=== PATIENT | male | born 1945 ===

== ENCOUNTER 2025-06-11 08:49 | Outpatient (AMB) | payer OTHER, SELFPAY ==
--- NOTE | 2025-06-11 08:50 | MHC.OFFVIS ---
Intake Visit Reasons: 6m Allergies No Known Allergies Allergy (Verified 06/11/25 08:55) Medication List - Last Reconciled 06/11/25 by Linda Villanueva CNP allopurinol 100 mg PO BID amlodipine 10 mg PO DAILY clonidine 1 patch topical QWEEK dapagliflozin propanediol (Farxiga) 10 mg PO DAILY gabapentin 100 mg PO BEDTIME 90 days levothyroxine 25 mcg PO DAILY losartan-hydrochlorothiazide 100-25 mg 1 tab PO DAILY simvastatin 20 mg PO BEDTIME spironolactone 12.5 mg PO DAILY HPI Comments Details: 79-year-old man with fasting hyperglycemia and mild peripheral neuropathy. He also c/o RLS type of symptoms. He was doing okay. Neuropathy symptoms were about the same. He had some numbness and tingling in feet. No significant pain. No falls. RLS symptoms were okay with gabapentin. Sleep was okay. [facility] Medical History (Updated 06/11/25 @ 08:53 by Linda Villanueva CNP) CKD (chronic kidney disease) JO ANN on CPAP Hyperlipidemia Hypothyroidism Gout Hypertension Review of Systems Const Denies chills, Denies daytime sleepiness, Denies difficulty sleeping, Denies fatigue, Denies fever(s), Denies frequent falls, Denies headache(s), Denies increased appetite, Denies poor appetite, Denies snoring, Denies weakness, Denies weight gain and Denies weight loss Eyes Denies loss of vision ENT Denies vertigo, Denies dizziness and Denies headache(s) Card Denies chest pain at rest, Denies chest pain with activity, Denies syncope, Denies leg edema and Denies palpitations Resp Denies snoring GI Denies constipation, Denies heartburn, Denies diarrhea and Denies nausea Denies urinary frequency, Denies urinary incontinence and Denies urinary urgency Musc Denies abnormal gait, Reports numbness and Reports tingling Skin/Breast Denies dry skin and Denies rash Neuro Denies abnormal gait, Denies vertigo, Denies dizziness, Denies syncope, Denies frequent falls, Denies headache(s), Denies lack of coordination, Denies loss of vision, Denies memory loss, Reports numbness, Reports restless legs, Denies seizure-like activity, Reports tingling, Denies paresthesias, Denies tremor(s) and Denies weakness Psych Denies anxiety, Denies depression, Denies auditory hallucinations, Denies memory loss, Denies visual hallucinations and Denies suicidal ideation Endo Denies fatigue and Denies palpitations Physical Exam Const Other: General Appearance:? normal, in no acute distress. Skin:? no rashes, no significant birthmarks. Heart:? S1, S2 normal, no murmurs. Lungs:? clear anteriorly and posteriorly. Extremities:? no edema. Psych:? alert, oriented, cognitive function intact, cooperative with exam. Neuro Other: Mental Status:?Normal attention, orientation, memory and affect.? Cranial Nerves:?Pupils are equal, round and reactive to light. External occular muscles are intact. Visual roberts are full. Face is symmetrical. Facial sensations are normal. Tongue is midline. Palate elevates symmetrically. Shoulder shrugging is normal. Hearing to bedside conversation is normal.? Sensory Exam:?Joint position absent. Coordination:?No ataxia,?no titubation.? Gait Exam: Within normal limits. Extrapyramidal System:?No tremor, rigidity with normal facial expressions.? Pronator Drift:?Not present.? Involuntary Movements:?No tremors seen.? Speech:?Normal.? 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 Stay physically active, continue to monitor blood sugar. (2) Restless leg syndrome: Code(s): G25.81 - Restless legs syndrome Category: Medical Plan: Continue gabapentin 100mg 1 capsule at bedtime. Coding Level of Care Code Est Pt Level 4 (81236) Diagnoses Peripheral polyneuropathy G62.9 Peripheral neuropathy type: polyneuropathy, unspecified Restless leg syndrome G25.81
--- OUTSIDE RECORDS SUMMARY | 2025-06-11 09:36 | XMS_ITS | Clinical Summary ---
Author Organization [address] Address [address] [place] [phone] Phone Care Team Providers Care Inspector Precision Name Role Phone Shyla Osorio MD Primary Care Provider [phone] Allergies No known active allergies Medications cholecalciferol (VITAMIN D-3) 5,000 Units tablet Take 1 tablet (5,000 Units total) by mouth 1 (one) time each day. Active dapagliflozin propanediol (FARXIGA) 10 mg tablet Take 1 tablet (10 mg total) by mouth 1 (one) time each day. 3 Active meclizine (ANTIVERT) 25 mg tablet Take 1 tablet (25 mg total) by mouth. Take 1 Tablet by mouth 3 times daily as needed (dizziness) 2 Active spironolactone (ALDACTONE) 25 mg tablet Take 1 tablet (25 mg total) by mouth 1 (one) time. Take 1/2 tablet daily Active losartan-hydroCH LOROthiazide (HYZAAR) 100-25 mg per tablet Take 1 tablet by mouth 1 (one) time each day. Active cloNIDine (NRLVZDQN-MUY-4) 0.3 mg/[address] 0.3 mg on the skin 1 (one) time per week. Active gabapentin (NEURONTIN) 100 mg capsule Take 1 Capsule by mouth daily Active levothyroxine (SYNTHROID, LEVOTHROID) 25 mcg tablet TAKE 1 TABLET BY MOUTH EVERY DAY 90 tablet 1 5 Active allopurinoL (ZYLOPRIM) 100 mg tablet Take 1 tablet (100 mg total) by mouth 2 (two) times a day. 180 tablet 5 Active simvastatin (ZOCOR) 20 mg tablet TAKE 1 TABLET BY MOUTH EVERYDAY AT BEDTIME 90 tablet 5 Active amLODIPine (NORVASC) 10 mg tablet TAKE 1 TABLET BY MOUTH EVERY DAY 90 tablet 1 5 Active Active Problems Problem Noted Date Diagnosed Date Stage 3 chronic kidney disease ([facility]24, [facility] V28) 12/14/2021 Obstructive sleep apnea 04/21/2021 Overview (10/19/2023): [facility] Home Sleep Apnea Test: Date 04/08/2021; Wt 212#; BMI 31; [place] (AHI) 25, AI 14; HI 11; Unclassified apneas 0; Obstructive apneas 127; Central apneas 8; Mixed apneas 1; hypopneas 118; average oxygen saturation 93% (lowest 83% without saturations <88% for 5% or more of study) - Obstructive Sleep Apnea - moderate; mostly obstructive apneas; without sleep related hypoventilation by 2020 home sleep apnea test. Vertigo 09/09/2020 Diverticulosis 02/05/2020 Overview (10/19/2023): 01/16/2020: CT scan. Diverticulosis of large inte taqueria without perforation or abscess with bleeding 02/05/2020 Ischemic colitis ([facility] V24) 06/17/2016 Obesity 05/26/2016 Hyperglycemia 07/18/2015 Cervical spine disease 09/12/2014 Anal fistula 04/28/2011 Hearing loss in left ear 06/27/2009 Overview (10/19/2023): L>R, follows with ENT/audiology Gout 08/26/2008 Pure hypercholesterolemia 04/29/2006 Essential hypertension, benign 09/07/2005 Encounters Date Type Department Care Team Description 05/20/2025 9:30 AM EDT Office Visit Orthopedic Surgery [facility] [address] [place] [phone] Hemal Sim DPKalin Pain in toes of both feet (Primary Dx); Arthritis of both feet; Thickened nails 05/14/2025 9:30 AM EDT Office Visit Adult Medicine [facility] [address] [place] [phone] Shyla Osorio MD Pre-diabetes (Primary Dx); Microalbuminuria; Stage 3 chronic kidney disease, unspecified whether stage 3a or 3b CKD ([facility] V24, [facility] V28); Obesity (BMI 30-39.9); Pure hypercholesterolemia; Essential hypertension, benign 03/18/2025 10:00 AM EDT Consult Orthopedic [place] [address] [place] [phone] Hemal Sim DPKalin Pain in toes of both feet (Primary Dx); Arthritis of both feet; Thickened nails from Last 3 Months Immunizations Immunization Administration Dates Next Due COVID-19 (Moderna/Spikevax) 12yo and older 05/18/2023 COVID-19 (Pfizer/Comirnaty) 12yo and older 05/06/2024 Influenza Quadravalent, 0.5m l (Fluzone High-dose) 65yo and older 04/30/2021 Influenza trivalent, 0.5mL ( Fluzone High-dose) 65yo and older 03/17/2025,04/15/2023,04/29/2022,04/25,04/17/2019,05/10/2018,05/03/2017 ,05/25/2016 Influenza trivalent, with pr eservative (Fluzone; Afluria) 6mo and older 07/18/2015,07/09/2014,08/30/2013,07/24,04/28/2011,07/01/2010,05/14/2009 ,06/26/2008 Moderna SARS-CoV-2 COVID-19, mRNA, LNP-S, preservative free 12/15/2021,06/10/2021,10/08/2020,09/10 Pneumococcal conjugate 13 va lent (Prevnar 13, PCV13) 2mo and older 08/21/2015 Pneumococcal polysaccharide 23 valent (Pneumovax 23) 2yo and older 02/21/2012 Respiratory syncytial virus (RSV), unspecified 08/06/2023 Tdap Tetanus diptheria acell ular pertussis (Boostrix; Adacel) 7yo and older 04/26/2020,06/27/2009 Zoster Live 07/24/2012 Zoster recombinant (Shingrix ) 19yo and older 07/11/2022,03/25/2022 Surgical History Surgery Date Site/Laterality Comments COLONOSCOPY 10/11/2005 PROCEDURE: HISTORICAL COLONOSCOPY; COMMENT: normal COLONOSCOPY 10/13/2015 PROCEDURE: HISTORICAL COLONOSCOPY; COMMENT: 6 mm polyps 2: Low risk adenomas 2. Medical History Medical History Date Comments Hyperaldosteronism ([facility] V24) DX:Hyperaldosteronism; COMMENT: s/p lap adrenlectomy 09/19 Proteinuria DX:Proteinuria; COMMENT: followed by Dr. 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 Family History Medical History Relation Name Comments Hypertension Brother 1 Colon polyps Brother 2 age mid 50' Diabetes Father Hypertension Father Stroke Father age 73 Cataracts Mother Heart attack Mother age 86 Blindness Neg Hx Colon cancer Neg Hx Glaucoma Neg Hx Macular degeneration Neg Hx Strabismus Neg Hx Relation Name Status Comments Brother 1 Brother 2 Father Mother Social History Tobacco Use Types Packs/Day Years Used Date Smoking Tobacco: Never Smokeless Tobacco: Never Tobacco Cessation:Counseling Given: Not Answered Alcohol Use Standard Drinks/Week Comments Yes 0 (1 standard drink = 0.6 oz pur e alcohol) Housing Instability Answer Date Recorde d Are you worried that in the next 2 months you may not have stable housing? No 06/27/2024 Food Access & Nutrition Answer Date Rec orded Do you have access to a vari ety of food including fruits and vegetables? Yes 06/27/2024 Access to Healthcare Answer Date Record ed Within the last 3 months, ho w many times did you visit the emergency department for your medical care? 0 06/27/2024 Health Literacy Answer Date Recorded How often do you need to hav e someone help you when you read instructions, pamphlets, or other written material from your doctor or pharmacy? Never 06/27/2024 Caregiver: How often do you need to have someone help you when you read instructions, pamphlets, or other written material from your doctor or pharmacy? Not on file 06/27/2024 Financial Risk Answer Date Recorded How hard is it for you to pa y for the very basics like food, housing, medical care, and air conditioning / heating? Not very hard 06/27/2024 Transportation Answer Date Recorded Has the lack of transportati on kept you from meetings, work, or from getting things needed for daily living? No Has the lack of transportati on kept you from medical appointments or from getting medications? No 06/27/2024 Social Isolation Answer Date Recorded How often do you feel lonely or isolated from th ose around you? Never 06/27/2024 Food Risk Answer Date Recorded Within the past 12 months we worried whether our food would run out before we got money to buy more. Never true 06/27/2024 Within the past 12 months th e food we bought just didn't last and we didn't have money to get more. Never true 06/27/2024 Dependent Care Answer Date Recorded Do you need help finding or paying for care for your loved ones. For example, childcare teacher or elderly care for an older adult? No 06/27/2024 Education Answer Date Recorded Do you think completing more education or training, like finishing a GED, going to college, or learning a trade, would be helpful for you? No 06/27/2024 Employment and Income Answer Date Recor ded During the last four weeks, have you been actively looking for work? No 06/27/2024 Living Situation Answer Date Recorded What is your living situation? Unrecognized valu e 06/27/2024 Sex and Gender Information Value Date Recorded Sex Assigned at Not on file Legal Sex Male 1:21 PM EST Gender Identity Not on file Sexual Orientation Not on file Obstetrics History Last Filed Vital Signs Vital Sign Reading Time Taken Comments Blood Pressure 129/68 05/14/2025 9:19 AM EDT Pulse 67 05/14/2025 9:19 AM EDT Temperature 36.4 C (97.5 F) 05/14/2025 9:19 AM EDT Respiratory Rate 12 05/14/2025 9:19 AM EDT Oxygen Saturation 97% 01/31/2025 8:49 AM EDT Inhaled Oxygen Concentration - - Weight 102 kg (224 lb) 05/14/2025 9:19 AM EDT Height 175.3 cm (5' 9 ) 05/14/2025 9:19 AM EDT Body Mass Index 33.08 05/14/2025 9:19 AM EDT Plan of Treatment Upcoming Encounters Date Type Department Care Team (Late st Contact Info) Description 07/23/2025 9:45 AM EST Office Visit Orthopedic Surgery - [place] 250 [address] [facility] [address] [place] [phone] Hemal Sim DPM [address] [place] [phone] 09/17/2025 9:30 AM EST Office Visit Adult Medicine [facility] [address] [place] [phone] Shyla Osorio MD [address] [place] [address] 01/31/2026 9:30 AM EDT Office Visit Pulmonology - [place] 175 [facility] 200 [place] [phone] Maria M Iverson MD [address] [place] [phone] Health Maintenance Due Date Last Done Comments RSV Immunization Adult Patients (1 - 1-dose 75+ series) 2021 08/06/2023 Falls Risk Assessment 07/24/2022 Medicare Annual Wellness Visit 07/24/2022 Social Influencers of Health Screening 06/27/2025 06/27/2024 Hypertension/CHF/CAD Annual BMP Blood Test 05/27/2026 05/27/2025, 05/07/2025, 02/12/2025, Additional history exists Colorectal Cancer Screening: Colonoscopy 06/06/2026 06/06/2016 DTaP,Tdap,and Td Vaccines (3 - Td or Tdap) 04/26/2030 04/26/2020, 06/27/2009 Cholesterol Screening (Lipid Panel) 05/07/2030 05/07/2025, 10/25/2023, 10/12/2021 Hepatitis C Screening Completed 08/28/2013 Pneumococcal Vaccine: 50+ Years Completed 08/21/2015, 07/30/2015, 02/21/2012 Zoster Vaccines Completed 07/11/2022, 03/15, 07/24/2012 RSV Immunization Patients Under 20 months Aged Out 08/06/2023 No longer eligible based on patient's age to complete this topic COVID-19 Vaccine Completed 02/11/2025, , 05/18/2023, Additional history exists Influenza Vaccine Completed 03/17/2025, , 04/15/2023, Additional history exists Depression Screening Completed 05/11/2025 HIB Vaccines Aged Out No longer eligi ble based on patient's age to complete this topic HPV Vaccines Aged Out No longer eligi ble based on patient's age to complete this topic Hepatitis A Vaccines Aged Out No long er eligible based on patient's age to complete this topic Hepatitis B Vaccines Aged Out No long er eligible based on patient's age to complete this topic IPV Vaccines Aged Out No longer eligi ble based on patient's age to complete this topic MMR Vaccines Aged Out No longer eligi ble based on patient's age to complete this topic Meningococcal ACWY Vaccine Aged Out N o longer eligible based on patient's age to complete this topic Meningococcal B Vaccine Aged Out No l onger eligible based on patient's age to complete this topic Varicella Vaccines Aged Out No longer eligible based on patient's age to complete this topic Procedures Procedure Name Priority Date/Time Associated Diagnosis Comments RENAL FUNCTION PANEL Routine 05/27/2025 7:48 AM EDT Hypopotassemia Essential hypertension, malignant Chronic kidney disease (CKD) stage G3a/A1, moderately decreased glomerular filtration rate (GFR) between 45-59 mL/min/1.73 square meter and albuminuria creatinine ratio les* ([facility] V24, [facility] V28) MAGNESIUM Routine 05/27/2025 7:48 AM EDT Hypopotassemia Essential hypertension, malignant Chronic kidney disease (CKD) stage G3a/A1, moderately decreased glomerular filtration rate (GFR) between 45-59 mL/min/1.73 square meter and albuminuria creatinine ratio les* ([facility]/H[facility] V24, [facility] V28) PROTEIN AND CREATININE WITH RATIO, URINE Routine 05/27/2025 7:48 AM EDT Hypopotassemia Essential hypertension, malignant Chronic kidney disease (CKD) stage G3a/A1, moderately decreased glomerular filtration rate (GFR) between 45-59 mL/min/1.73 square meter and albuminuria creatinine ratio les* ([facility] V24, [facility] V28) CBC WITH AUTO DIFFERENTIAL Routine 05/07/2025 7:57 AM EDT Routine general medical examination at a [facility] CBC AND DIFFERENTIAL Routine 05/07/2025 7:57 AM EDT Routine general medical examination at a [facility] COMPREHENSIVE METABOLIC PANEL Routine 05/07/2025 7:57 AM EDT Essential hypertension, benign Routine general medical examination at a [facility] facility LIPID PANEL WITH REFLEX TO DIRECT LDL Routine 05/07/2025 7:57 AM EDT Routine general medical examination at a [facility] facility HEMOGLOBIN A1C Routine 05/07/2025 7:57 AM EDT Hyperglycemia Routine general medical examination at a [facility] HM COLONOSCOPY Routine 06/06/2016 HEPATITIS C SCREENING Routine 08/28/2013 from Last 3 Months or Most Recently Relevant to Health Maintenance Results * Protein and creatinine with ratio, urine (05/27/2025 7:48 AM EDT) Pathologist [facility] Protein, Urine 34 mg/dL LAB CHEMISTRY METHOD 05/27/2025 11:16 AM EDT [facility] Prot/Creat, Ur 0.17 <=0.20 mg/mg creat LAB CHEMISTRY METHOD 05/27/2025 11:16 AM EDT [facility] Creatinine, Urine 198.0 mg/dL LAB CHEMISTRY METHOD 05/27/2025 11:16 AM EDT [facility] Urine Urine specimen obtained by clean catch procedure / Unknown Non-blood Collection / Unknown 05/27/2025 7:48 AM EDT 05/27/2025 7:48 AM EDT us Sameer Strange MD LAB URINE ORDERABLES Final Resu lt Performing Organization Address City/[facility]/ZIP Co de Phone Number [facility] [address] [place] [address], [place] [phone] * Magnesium (05/27/2025 7:48 AM EDT) Magnesium 2.2 1.9 - 2.6 mg/dL LAB CHEMISTRY METHOD 05/27/2025 10:15 AM EDT [facility] Blood Venous blood specimen / Unknown Venipuncture / Unknown 05/27/2025 7:48 AM EDT 05/27/2025 7:48 AM EDT us Sameer Strange MD LAB BLOOD ORDERABLES Final Resu lt [facility] [address] [place] [address], [place] [phone] * (ABNORMAL) Renal function panel (05/27/2025 7:48 AM EDT) Sodium 139 133 - 145 mmol/L LAB CHEMISTRY METHOD 05/27/2025 10:15 AM EDT [facility] Potassium 4.0 3.5 - 5.5 mmol/L LAB CHEMISTRY METHOD 05/27/2025 10:15 AM EDT [facility] Chloride 107 96 - 110 mmol/L LAB CHEMISTRY METHOD 05/27/2025 10:15 AM [facility] CO2 26 21 - 32 mmol/L LAB CHEMISTRY METHOD 05/27/2025 10:15 AM [facility] Anion Gap 6 3 - 11 LAB CHEMISTRY METHOD 05/27/2025 10:15 AM [facility] Glucose 120(H) 70 - 100 mg/dL LAB CHEMISTRY METHOD 05/27/2025 10:15 AM [facility] BUN 38(H) 5 - 25 mg/dL LAB CHEMISTRY METHOD 05/27/2025 10:15 AM [facility] Creatinine 1.51(H) 0.70 - 1.30 mg/dL LAB CHEMISTRY METHOD 05/27/2025 10:15 AM [facility] eGFR 47(L) >=60 mL/min/1. 73m2 LAB CHEMISTRY METHOD 05/27/2025 10:15 AM [facility] Comment:Calculation based on the Chronic Kidney Disease Epidemiology Collaboration (CKD-EPI) equation refit without adjustment for race. BUN/Creatinine Ratio 25.2 LAB CHEMISTRY METHOD 05/27/2025 10:15 AM [facility] Albumin 3.8 3.2 - 5.0 g/dL LAB CHEMISTRY METHOD 05/27/2025 10:15 AM [facility] Calcium 8.9 8.5 - 10.5 mg/dL LAB CHEMISTRY METHOD 05/27/2025 10:15 AM [facility] Phosphorus 3.5 2.5 - 4.5 mg/dL LAB CHEMISTRY METHOD 05/27/2025 10:15 AM [facility] Blood Venous blood specimen / Unknown Venipuncture / Unknown 05/27/2025 7:48 AM EDT 05/27/2025 7:48 AM EDT Sameer Strange MD LAB BLOOD ORDERABLES Final Resu lt Performing Organization Address City/[facility]/ZIP Co de Phone Number [facility] [address] [place] [address], [place] [phone] * (ABNORMAL) Lipid panel with reflex to direct LDL (05/07/2025 7:57 AM EDT) Cholesterol 111 0 - 200 mg/dL LAB CHEMISTRY METHOD 05/07/2025 10:37 AM EDT [facility] Triglycerides 130 0 - 150 mg/dL LAB CHEMISTRY METHOD 05/07/2025 10:37 AM EDT [facility] HDL 37(L) >=40 mg/dL LAB CHEMISTRY METHOD 05/07/2025 10:37 AM EDT [facility] LDL Calculated 48 0 - 100 mg/dL LAB CHEMISTRY METHOD 05/07/2025 10:37 AM EDT [facility] Comment:Estimated LDL Calcul ated using equation: Total cholesterol - HDL cholesterol - (Triglycerides/5) VLDL Cholesterol Thaddeus 26 mg/dL LAB CHEMISTRY METHOD 05/07/2025 10:37 AM EDT [facility] Non HDL Chol. (LDL+VLDL) 74 <145 mg/dL LAB CHEMISTRY METHOD 05/07/2025 10:37 AM EDT [facility] Chol/HDL Ratio 3.0 0.0 - 4.4 LAB CHEMISTRY METHOD 05/07/2025 10:37 AM EDT [facility] Blood Venous blood specimen / Unknown Venipuncture / Unknown 05/07/2025 7:57 AM EDT 05/07/2025 7:57 AM EDT Shyla Osorio MD LAB BLOOD ORDERABLES Final Resul t Performing Organization Address [facility]/State/ZIP Co de Phone Number [facility] [address] [place] [address], [place] [phone] * (ABNORMAL) CBC auto differential (05/07/2025 7:57 AM EDT) [facility] WBC 6.5 4.8 - 10.8 K/mcL LAB HEMETOLOGY METHOD 05/07/2025 10:16 AM [facility] RBC 4.40(L) 4.50 - 5.50 M/mcL LAB HEMETOLOGY METHOD 05/07/2025 10:16 AM [facility] Hemoglobin 13.4(L) 13.5 - 17.5 g/dL LAB HEMETOLOGY METHOD 05/07/2025 10:16 AM [facility] Hematocrit 39.1(L) 42.0 - 54.0 % LAB HEMETOLOGY METHOD 05/07/2025 10:16 AM [facility] MCV 88.5 79.0 - 98.0 FL LAB HEMETOLOGY METHOD 05/07/2025 10:16 AM [facility] MCH 30.3 27.0 - 32.0 pcg LAB HEMETOLOGY METHOD 05/07/2025 10:16 AM [facility] MCHC 34.3 32.0 - 37.0 g/dL LAB HEMETOLOGY METHOD 05/07/2025 10:16 AM [facility] RDW 15.4(H) 11.0 - 15.0 % LAB HEMETOLOGY METHOD 05/07/2025 10:16 AM [facility] Platelets 180 130 - 400 K/mcL LAB HEMETOLOGY METHOD 05/07/2025 10:16 AM [facility] MPV 11.4(H) 7.0 - 11.0 FL LAB HEMETOLOGY METHOD 05/07/2025 10:16 AM [facility] NRBC 0.0 <1.0 % LAB HEMETOLOGY METHOD 05/07/2025 10:16 AM [facility] NRBC Absolute 0.00 <0.10 K/mcL LAB HEMETOLOGY METHOD 05/07/2025 10:16 AM [facility] Neutrophils Relative 62.4 % LAB HEMETOLOGY METHOD 05/07/2025 10:16 AM [facility] Lymphocytes Relative 24.1 % LAB HEMETOLOGY METHOD 05/07/2025 10:16 AM [facility] Monocytes Relative 9.9 % LAB HEMETOLOGY METHOD 05/07/2025 10:16 AM [facility] Eosinophils Relative 2.5 % LAB HEMETOLOGY METHOD 05/07/2025 10:16 AM [facility] Basophils Relative 0.5 % LAB HEMETOLOGY METHOD 05/07/2025 10:16 AM [facility] Immature Granulocytes Relative 0.6 % LAB HEMETOLOGY METHOD 05/07/2025 10:16 AM [facility] Neutrophils Absolute 4.04 1.50 - 7.00 K/mcL LAB HEMETOLOGY METHOD 05/07/2025 10:16 AM [facility] Lymphocytes Absolute 1.56 1.00 - 5.00 K/mcL LAB HEMETOLOGY METHOD 05/07/2025 10:16 AM [facility] Monocytes Absolute 0.64 0.20 - 1.00 K/mcL LAB HEMETOLOGY METHOD 05/07/2025 10:16 AM [facility] Eosinophils Absolute 0.16 0.00 - 0.50 K/mcL LAB HEMETOLOGY METHOD 05/07/2025 10:16 AM [facility] Basophils Absolute 0.03 0.00 - 0.20 K/mcL LAB HEMETOLOGY METHOD 05/07/2025 10:16 AM [facility] Immature Granulocytes Absolute 0.04(H) 0.00 - 0.03 K/mcL LAB HEMETOLOGY METHOD 05/07/2025 10:16 AM EDT [facility] Blood Venous blood specimen / Unknown Venipuncture / Unknown 05/07/2025 7:57 AM EDT 05/07/2025 7:57 AM EDT us Shyla Osorio MD LAB BLOOD ORDERABLES Final Resul t Performing Organization Address [facility]/ZIP Co de Phone Number [facility] [address] [place] [address], [place] [phone] * Hemoglobin A1c (05/07/2025 7:57 AM EDT) Hemoglobin A1C 6.3 <6.5 % LAB CHEMISTRY METHOD 05/07/2025 11:33 AM EDT [facility] Mean Bld Glu Estim. 134 mg/dL LAB CHEMISTRY METHOD 05/07/2025 11:33 AM EDT [facility] Blood Venous blood specimen / Unknown Venipuncture / Unknown 05/07/2025 7:57 AM EDT 05/07/2025 7:57 AM EDT us Shyla Osorio MD LAB BLOOD ORDERABLES Final Resul t Performing Organization Address [facility]/ZIP Co de Phone Number [facility] [address] [place] [address], [place] [phone] * (ABNORMAL) Comprehensive metabolic panel (05/07/2025 7:57 AM EDT) Pathologist [facility] Sodium 138 133 - 145 mmol/L LAB CHEMISTRY METHOD 05/07/2025 10:37 AM EDT [facility] Potassium 4.0 3.5 - 5.5 mmol/L LAB CHEMISTRY METHOD 05/07/2025 10:37 AM EDT [facility] Chloride 107 96 - 110 mmol/L LAB CHEMISTRY METHOD 05/07/2025 10:37 AM EDT [facility] CO2 24 21 - 32 mmol/L LAB CHEMISTRY METHOD 05/07/2025 10:37 AM [facility] Anion Gap 7 3 - 11 LAB CHEMISTRY METHOD 05/07/2025 10:37 AM [facility] Glucose 115(H) 70 - 100 mg/dL LAB CHEMISTRY METHOD 05/07/2025 10:37 AM [facility] BUN 39(H) 5 - 25 mg/dL LAB CHEMISTRY METHOD 05/07/2025 10:37 AM [facility] Creatinine 1.40(H) 0.70 - 1.30 mg/dL LAB CHEMISTRY METHOD 05/07/2025 10:37 AM [facility] eGFR 51(L) >=60 mL/min/1. 73m2 LAB CHEMISTRY METHOD 05/07/2025 10:37 AM [facility] Comment:Calculation based on the Chronic Kidney Disease Epidemiology Collaboration (CKD-EPI) equation refit without adjustment for race. BUN/Creatinine Ratio 27.9 LAB CHEMISTRY METHOD 05/07/2025 10:37 AM [facility] Calcium 9.0 8.5 - 10.5 mg/dL LAB CHEMISTRY METHOD 05/07/2025 10:37 AM [facility] AST (SGOT) 28 10 - 42 unit/L LAB CHEMISTRY METHOD 05/07/2025 10:37 AM [facility] ALT (SGPT) 46 10 - 60 unit/L LAB CHEMISTRY METHOD 05/07/2025 10:37 AM [facility] Alkaline Phosphatase 58 42 - 121 unit/L LAB CHEMISTRY METHOD 05/07/2025 10:37 AM [facility] Total Protein 7.2 6.0 - 8.0 g/dL LAB CHEMISTRY METHOD 05/07/2025 10:37 AM [facility] Albumin 3.8 3.2 - 5.0 g/dL LAB CHEMISTRY METHOD 05/07/2025 10:37 AM [facility] Total Bilirubin 0.6 0.0 - 1.4 mg/dL LAB CHEMISTRY METHOD 05/07/2025 10:37 AM EDT [facility] Blood Venous blood specimen / Unknown Venipuncture / Unknown 05/07/2025 7:57 AM EDT 05/07/2025 7:57 AM EDT Shyla Osorio MD LAB BLOOD ORDERABLES Final Resul t [facility] [address] [place] [address], [place] [phone] * Colonoscopy (06/06/2016) Colonoscopy no interpretation , abstracted Anatomical Region Laterality Modality Other Historical Provider HEALTH MAINTENANCE Final Result * Hepatitis C Screening (08/28/2013) Hepatitis C Screening abstracted Historical Provider HEALTH MAINTENANCE Final Result from Last 3 Months or Most Recently Relevant to Health Maintenance Insurance [employer] Care Teams Inspector Precision Relationship Specialty Start Date End Date Syhla Osorio MD [address] [place] [address] PCP - General 07/24/00
== END 2025-06-11 09:02 | disposition home or self-care (01) ==
LOC: HO.HSM 08:49
PROVIDERS: PCP Internal Medicine; Referring Provider Internal Medicine; Visit Provider Registered Nurse
DX: G62.9 Polyneuropathy, unspecified (principal); G25.81 Restless legs syndrome
CPT/HCPCS: 99214